=== PATIENT | male | born 1955 | race Caucasian/White ===

== ENCOUNTER → 2021-06-06 | Outpatient (CLI) | payer OTHER, MEDICARE ==
[~2021-06-06] MED LIST: ASA81BEC PO; DULOXETINE HCL60 MG PO; INVANZ1 GM IVPB; LISINOPRIL-HCT1 EACH PO; TOPROL XL50 MG; XARELTO20 MG PO
[2021-06-06 11:45] VITALS: BP 148/93
--- NOTE | 2021-06-06 12:41 | NUR ---
VAT CONSULTED FOR PICC PLACEMENT IN OUTPATIENT INFUSION. LEFT UPPER BASILIC PICC TRIMMED 53CM/1CM EXTERNAL. TIP LOCATION VERIFIED WITH 3CG AND RELEASED FOR USE, PER HOSPITAL VASCULAR ACCESS POLICY. PT TOLERATED WELL.
[2021-06-06 13:25] VITALS: BP 148/93
[2021-06-06 13:35] LABS: HEMATOCRIT 40.4 % (42.0-52.0); HEMOGLOBIN 13.7 gm/dL (14.0-18.0); MCH 32.1 pg (26.0-34.0); MCV 94.4 fL (80.0-100.0); RBC 4.28 mil/uL (4.50-6.00); RDW 13.1 % (10.5-14.5); WBC 7.8 thou/uL (4.0-11.0)
[2021-06-06 13:45] LABS: ALBUMIN 3.6 g/dL (3.4-5.0); CALCIUM 8.4 mg/dL (8.5-10.1); CREATININE 0.9 mg/dL (0.7-1.3); POTASSIUM 3.6 mmol/L (3.5-5.1); TOTAL BILIRUBIN 0.6 mg/dL (0.2-1.0); TOTAL PROTEIN 6.5 g/dL (6.4-8.2)
--- NOTE | 2021-06-06 15:02 | NUR ---
NEW PT OF DR. GALDAMEZ'S CAME TO US FOR PICC LINE PLACEMENT AND FIRST DOSE OF ERTAPENEM FOR OSTEOMYELITIS OF FINGER OF RIGHT HAND. VSS. HISTORY AND MEDICATION LIST UPDATED. PT DENIES ANY PAIN, NAUSEA, DIZZINESS, OR NOTABLE SYMPTOMS. VAT PLACED POWER PICC IN RADHA WITH NO COMPLICATIONS. REVIEWED PICC LINE HOME CARE. PT COMMUNICATES UNDERSTANDING AND DENIES ANY QUESTIONS. LABS DRAWN VIA PICC LINE PER ORDER. RESULTS FAXED TO DR. GALDAMEZ, ALONG WITH PICC CONFIRMATION. PT TOLERATED ERTAPENEM INFUSION WITH NO COMPLICATIONS. GAVE PT TEACHING HANDOUT ON NEW DRUG. NO QUESTIONS. PT SCHEDULED FOR DAILY OUTPATIENT INFUSIONS. EXPLAINED THE PROCESS FOR WEEKEND INFUSIONS AND GAVE INSTRUCTION SHEET. PT WILL GO TO ED FOR HIS -FRI INFUSIONS. VERIFIED WITH BRAND ANALYST. WILL RETURN TO INFUSION CLINIC ON MONDAY 06/11 AT 1000. PT DOES NOT HAVE A F/U APPT WITH DR GALDAMEZ YET. STATES HE WILL CALL TO SET ONE UP. PT LEFT UNIT IN STABLE CONDITION.
== END ==
LOC: OPONC 08:43
PROVIDERS: ATTEND Specialist
DX: M86.8X4 Other osteomyelitis, hand (principal)
CPT/HCPCS: 27000; 95000

== ENCOUNTER → 2021-06-07 | Outpatient (CLI) | payer OTHER, MEDICARE ==
[2021-06-07 08:10] VITALS: BP 137/80
[2021-06-07 08:48] VITALS: BP 119/85
== END ==
LOC: OPONC 12:00
PROVIDERS: ATTEND Specialist
DX: M86.8X4 Other osteomyelitis, hand (principal)
CPT/HCPCS: 95000

== ENCOUNTER → 2021-06-08 | Outpatient (CLI) | payer OTHER, MEDICARE ==
[2021-06-08 08:31] VITALS: BP 127/92
[2021-06-08 09:06] VITALS: BP 126/90
== END ==
LOC: OPONC 12:00
PROVIDERS: ATTEND Specialist
DX: M86.8X4 Other osteomyelitis, hand (principal)
CPT/HCPCS: 95000

== ENCOUNTER → 2021-06-09 | Outpatient (CLI) | payer OTHER, MEDICARE ==
[2021-06-09 08:37] VITALS: BP 135/82
[2021-06-09 09:10] VITALS: BP 146/86
== END ==
LOC: OPONC 12:00
PROVIDERS: ATTEND Specialist
DX: M86.8X4 Other osteomyelitis, hand (principal)
CPT/HCPCS: 95000

== ENCOUNTER → 2021-06-10 | Outpatient (CLI) | payer OTHER, MEDICARE ==
[2021-06-10 08:47] VITALS: BP 136/92
[2021-06-10 09:23] VITALS: BP 128/89
== END ==
LOC: OPONC 12:00
PROVIDERS: ATTEND Specialist
DX: M86.8X4 Other osteomyelitis, hand (principal)
CPT/HCPCS: 95000

== ENCOUNTER → 2021-06-11 | Outpatient (CLI) | payer OTHER, MEDICARE ==
[2021-06-11 10:10] VITALS: BP 128/81
--- NOTE | 2021-06-11 10:45 | NUR ---
HERE FOR HIS DAILY IV ERTAPENEM INFUSION. STATES INFUSIONS WENT WELL IN THE ED OVER THE HOLIDAY WEEKEND. DENIES N/V BUT DOES HAVE SOME DIARRHEA. NOT WATERY, 1-2 LOOSE STOOLS/DAY. LET PT KNOW THAT HE CAN ADD YOGURT AND/OR A PROBIOTIC AND CAN TAKE OTC IMMODIUM PER PACKAGE INSTRUCTIONS. INSTRUCTED PT TO REPORT ANY INCREASE OR PROBLEMS WITH THE DIARRHEA. DENIES FEVER/CHILLS. NO C/O PAIN. RIGHT 1ST 2 FINGERS REMAIN SLIGHTLY SWOLLEN. INCISION APPEARS TO BE HEALING; WELL APPROXIMATED, NO REDNESS OR DRAINAGE. ABLE TO BEND FINGERS WITH SOME LIMITATION. STATES EATING WELL. NO CONCERNS NOTED. PICC DRESSING INTACT WITH BRISK BLOOD RETURN. TOLERATED INFUSION WITHOUT INCIDENT. PLANS TO CALL DR. GALDAMEZ AND DR. MCKEON'S OFFICES TODAY TO SET UP HIS F/U APPTS. SCHEDULED TO RETURN HERE AGAIN TOMORROW. DISMISSED IN STABLE CONDITION.
== END ==
LOC: OPONC 12:20
PROVIDERS: ATTEND Specialist
DX: M86.8X4 Other osteomyelitis, hand (principal)
CPT/HCPCS: 95000

== ENCOUNTER → 2021-06-12 | Outpatient (CLI) | payer OTHER, MEDICARE ==
[2021-06-12 11:20] LABS: HEMATOCRIT 40.8 % (42.0-52.0); HEMOGLOBIN 13.7 gm/dL (14.0-18.0); MCHC 33.7 g/dL (28.0-37.0); MCV 94.9 fL (80.0-100.0); RBC 4.3 mil/uL (4.50-6.00); RDW 13.6 % (10.5-14.5); WBC 7.3 thou/uL (4.0-11.0)
[2021-06-12 11:30] VITALS: BP 135/91
[2021-06-12 11:35] LABS: ALBUMIN 3.6 g/dL (3.4-5.0); CALCIUM 8.6 mg/dL (8.5-10.1); CREATININE 0.9 mg/dL (0.7-1.3); POTASSIUM 3.9 mmol/L (3.5-5.1); TOTAL BILIRUBIN 0.4 mg/dL (0.2-1.0); TOTAL PROTEIN 6.5 g/dL (6.4-8.2)
== END ==
LOC: OPONC 08:44
PROVIDERS: ATTEND Specialist
DX: M86.8X4 Other osteomyelitis, hand (principal)
CPT/HCPCS: 95000

== ENCOUNTER → 2021-06-13 | Outpatient (CLI) | payer OTHER, MEDICARE ==
[2021-06-13 10:10] VITALS: BP 127/93
== END ==
LOC: OPONC 12:17
PROVIDERS: ATTEND Specialist
DX: M86.8X4 Other osteomyelitis, hand (principal)
CPT/HCPCS: 95000

== ENCOUNTER → 2021-06-14 | Outpatient (CLI) | payer OTHER, MEDICARE ==
[2021-06-14 10:45] VITALS: BP 136/93
== END ==
LOC: OPONC 14:09
PROVIDERS: ATTEND Specialist
DX: M86.8X4 Other osteomyelitis, hand (principal)
CPT/HCPCS: 95000

== ENCOUNTER → 2021-06-15 | Outpatient (CLI) | payer OTHER, MEDICARE ==
[2021-06-15 10:45] VITALS: BP 138/84
== END ==
LOC: OPONC 14:17
PROVIDERS: ATTEND Specialist
DX: M86.8X4 Other osteomyelitis, hand (principal)
CPT/HCPCS: 95000

== ENCOUNTER → 2021-06-16 | Outpatient (CLI) | payer OTHER, MEDICARE ==
[~2021-06-16] MED LIST changes: -TOPROL XL50 MG; +TOPROL XL50 MG PO
[2021-06-16 08:45] VITALS: BP 134/83
[2021-06-16 09:34] VITALS: BP 128/85
== END ==
LOC: OPONC 09:21
PROVIDERS: ATTEND Specialist
DX: M86.8X4 Other osteomyelitis, hand (principal)
CPT/HCPCS: 95000

== ENCOUNTER → 2021-06-17 | Outpatient (CLI) | payer OTHER, MEDICARE ==
[2021-06-17 09:32] VITALS: BP 134/87
== END ==
LOC: OPONC 09:26
PROVIDERS: ATTEND Specialist
DX: M86.8X4 Other osteomyelitis, hand (principal)
CPT/HCPCS: 95000

== ENCOUNTER → 2021-06-18 | Outpatient (CLI) | payer OTHER, MEDICARE ==
[2021-06-18 09:45] VITALS: BP 141/94
--- NOTE | 2021-06-18 10:15 | NUR ---
HERE FOR DAILY IV ERTAPENEM INFUSION. REPORTS DOING WELL, FEELING WELL. NO CONCERNS NOTED. SLIGHT REDNESS AT BASE OF BETWEEN 1ST AND 2ND FINGERS. STIFFNESS CONTINUES BUT ABLE TO BEND FINGERS. MINIMAL EDEMA. DENIES N/V/DIARRHEA, FEVER/CHILLS. TOLERATED INFUSION WITHOUT INCIDENT. DISMISSED IN STABLE CONDITION. SCHEDULED TO RETURN AGAIN IN THE MORNING.
== END ==
LOC: OPONC 09:30
PROVIDERS: ATTEND Specialist
DX: M86.8X4 Other osteomyelitis, hand (principal)
CPT/HCPCS: 95000

== ENCOUNTER → 2021-06-19 | Outpatient (CLI) | payer OTHER, MEDICARE ==
[2021-06-19 10:40] VITALS: BP 143/91
--- NOTE | 2021-06-19 10:40 | NUR ---
HERE FOR DAILY IV ERTAPENEM. CONTINUES TO REPORT DOING WELL, TOLERATING MEDICATION WITHOUT INCIDENT. DENIES N/V/DIARRHEA, FEVER/CHILLS. RIGHT HAND WITH MINIMAL REDNESS. FINGER STILL STIFF BUT ABLE TO BEND. PICC SITE LOOKS GOOD. LABS DRAWN TODAY. PT SEEING DR. GALDAMEZ TODAY. DISMISSED POST INFUSION IN STABLE CONDITION. SCHEDULED TO RETURN AGAIN IN THE MORNING.
[2021-06-19 10:54] LABS: ABSOLUTE NEUTROPHILS 4.5 thou/uL (1.4-8.2); BASOPHILS 0.7 % (0.0-2.0); EOSINOPHILS 2.3 % (0.0-3.0); HEMATOCRIT 41.9 % (42.0-52.0); HEMOGLOBIN 13.8 gm/dL (14.0-18.0); LYMPHOCYTES 16.7 % (24.0-44.0); MCH 31.6 pg (26.0-34.0); MCV 95.6 fL (80.0-100.0); MONOCYTES 9.5 % (1.0-8.0); PLATELET COUNT 193 thou/uL (150-400); POLYS 70.8 % (36.0-66.0); RBC 4.38 mil/uL (4.50-6.00); RDW 13.4 % (10.5-14.5); WBC 6.3 thou/uL (4.0-11.0)
[2021-06-19 11:11] LABS: ALBUMIN 3.5 g/dL (3.4-5.0); ANION GAP 9 mmol/L (7-16); BUN 14 mg/dL (7-18); CALCIUM 8.3 mg/dL (8.5-10.1); CHLORIDE 103 mmol/L (98-107); CO2 28 mmol/L (21-32); CREATININE 0.9 mg/dL (0.7-1.3); GLUCOSE 97 mg/dL (74-106); POTASSIUM 3.8 mmol/L (3.5-5.1); SGOT 45 U/L (15-37); SGPT 76 U/L (30-65); SODIUM 140 mmol/L (136-145); TOTAL BILIRUBIN 0.8 mg/dL (0.2-1.0); TOTAL PROTEIN 6.3 g/dL (6.4-8.2)
== END ==
LOC: OPONC 14:43
PROVIDERS: ATTEND Specialist
DX: M86.8X4 Other osteomyelitis, hand (principal)
CPT/HCPCS: 95000

== ENCOUNTER → 2021-06-20 | Outpatient (CLI) | payer OTHER, MEDICARE ==
[2021-06-20 11:21] VITALS: BP 138/93
--- NOTE | 2021-06-20 13:04 | NUR ---
HERE FOR DAILY ANTIBIOTIC THERAPY. PATIENT JUST CAME FROM APPOINTMENT AT SURGEONS OFFICE AND PATIENT TO HAVE SURGERY AGIAN TOMORROW ON FINGER. STATES WILL NOT BE HERE FOR APPOINTMENT TOMORROW. DENIES DIARHHEA, HEADACHE, NAUSEA. TOLERATED INFUSION WITHOUT ADVERSE REACTION. DC TO HOME IN STABLE CONDITION.
== END ==
LOC: OPONC 09:02
PROVIDERS: ATTEND Specialist
DX: M86.8X4 Other osteomyelitis, hand (principal)
CPT/HCPCS: 95000

== ENCOUNTER 2021-06-21 09:00 | Day surgery (SDC) | payer OTHER, MEDICARE ==
[~2021-06-21] VITALS: Ht 182.9 cm; Wt 106.1 kg
--- NOTE | ~2021-06-21 | O ---
[facility] [place] [address] OPERATIVE REPORT Name: HAYDEN RUIZ Room #: 150-8 [facility]#: [id number] Admission: 06/21/21 Attend Phys: Hali Gao, Discharge: Date of : 55 Report #: [id number] THIS REPORT FOR: cc: Landry Reynoso MD, David A. MD Deardorff, Valerie A. MD ~ DATE OF SERVICE: 06/21/2021 PREOPERATIVE DIAGNOSIS: Right ring finger osteomyelitis/recurrent. POSTOPERATIVE DIAGNOSIS: Right ring finger osteomyelitis/recurrent. PROCEDURE PERFORMED: Right ring finger incision and debridement of skin, subcutaneous tissue and bone. SURGEON: Hali Gao MD TYPE OF ANESTHESIA: General mask anesthesia. ESTIMATED BLOOD LOSS: Minimal. TOURNIQUET TIME: 14 minutes. COMPLICATIONS: None. CONDITION: Stable. DISPOSITION: To recovery room. INDICATIONS: The patient is a 66-year-old male with the above-mentioned diagnoses. He elects for operative treatment. The risks, benefits, alternatives, complications were discussed, including but not limited to infection, damage to vessels and nerves, incomplete relief or worsening of any symptoms, and inability to resolve the infection necessitating more surgery. Informed consent was obtained, and the correct extremity was identified and labeled by myself after verbal confirmation of the patient as well as visual confirmation and signed informed consent. DESCRIPTION OF PROCEDURE: The patient was brought back to the operating room and placed on the operating table in the supine position. He received his typical dose of ertapenem after the cultures were taken at the end of the procedure. The right extremity was sterilely prepped and draped in the usual fashion. A timeout was taken to verify correct patient, operative procedure, operative site, all concurred. The arm was elevated, exsanguinated proximal to the wrist and the tourniquet was inflated. The prior surgical incision was utilized. Typical material consistent with mycobacterial infections consisting [address] [address] OPERATIVE REPORT Name: HAYDEN RUIZ Room #: 150-8 [facility].#: [id number] Admission: 06/21/21 Attend Phys: Hali Gao, Discharge: Date of : 55 Report #: [id number] of the yellowish brownish tissue was found immediately at the incision site. It was tracked all the way down to the MP joint and the base of P1. It was thoroughly debrided with this combination of a synovial rongeur, regular rongeur and curette. Once this was thoroughly and completely debrided, fluoroscopy was brought in, which showed appropriate debridement with a curette. The area was then thoroughly irrigated with a liter of antibiotic saline. The wound was then closed with 4-0 nylon suture. The wound was dressed with Xeroform and sterile gauze, placed in a bulky dressing. All fingers were pink with brisk capillary refill. All sponge and needle counts were correct. The patient was transferred to postoperative recovery room in stable condition. By: [id number] Hali Gao MD /nt
[2021-06-21 10:42] VITALS: BP 130/96
[2021-06-21 12:41] VITALS: BP 130/96
== END 2021-06-21 13:05 | disposition home or self-care (01) ==
LOC: OR 09:00 → TBA 09:02 → OR 12:10
PROVIDERS: ATTEND Orthopaedic Surgery Hand Surgery
DX: M86.8X4 Other osteomyelitis, hand (principal); L02.511 Cutaneous abscess of right hand; I10 Essential (primary) hypertension; E78.5 Hyperlipidemia, unspecified; Z20.822 Contact with and (suspected) exposure to COVID-19; I48.91 Unspecified atrial fibrillation; F32.9 Major depressive disorder, single episode, unspecified; F41.9 Anxiety disorder, unspecified; Z98.890 Other specified postprocedural states; Z79.899 Other long term (current) drug therapy; Z79.01 Long term (current) use of anticoagulants
CPT/HCPCS: 50010; 50101; 50386; 56526; 57006; 57091; 57178; 62110; 62900; 70005

== ENCOUNTER → 2021-06-22 | Outpatient (CLI) | payer OTHER, MEDICARE ==
[2021-06-22 10:10] VITALS: BP 134/65
--- NOTE | 2021-06-22 10:44 | NUR ---
ARRIVED FOR DAILY ERTAPENEM. YESTERDAY PATIENT WAS IN SURGERY FOR LEFT FINGER OSTEOMYLITIS. DENIES PAIN. PT HEARING HAND BRACE. DENIES DIARRHEA, NAUSEA OR HEADACHE. TOLERATED INFUSION WITHOUT ADVERSE REACTION. DC TO HOME IN STABLE CONDITION FOLLOWING INFUSION. WILL RETURN TOMORROW FOR NEXT INFUSION.
== END ==
LOC: OPONC 09:02
PROVIDERS: ATTEND Specialist
DX: M86.8X4 Other osteomyelitis, hand (principal)
CPT/HCPCS: 95000

== ENCOUNTER → 2021-06-23 | Outpatient (CLI) | payer OTHER, MEDICARE ==
[2021-06-23 07:40] VITALS: BP 121/81
--- NOTE | 2021-06-23 08:58 | NUR ---
HERE FOR DAILY ERTAPENEM. STATES HE IS FEELING WELL. PATIENT DOING DRSSING CHANGES ON FINGER AT HOME. WEARING BRACE ON RIGHT HAND. TOLERATED INFUSION WITHOUT ADVERSE REACTION. DENIES N/V PAIN, SANTIAGO, OR DIARRHEA. DC AMBULATORY IN STABLE CONDITION. WILL RETURN IN AM FOR NEXT TREATMENT.
== END ==
LOC: OPONC 09:57
PROVIDERS: ATTEND Specialist
DX: M86.8X4 Other osteomyelitis, hand (principal)
CPT/HCPCS: 95000

== ENCOUNTER → 2021-06-24 | Outpatient (CLI) | payer OTHER, MEDICARE ==
[2021-06-24 07:43] VITALS: BP 118/75
--- NOTE | 2021-06-24 08:47 | NUR ---
ARRIVED FOR DAILY ERTAPENAM. RIGHT FINGER STITCHES INTACT. PATIENT CLEANING WOUND DAILY AND CHANGING DRESSING AT HOME. WEARS RIGHT HAND BRACE. TOLERATED INFUSION WITHOUT ADVERSE REACTION. VOICED NO COMPLAINTS. DC IN STABLE CONDITION.
== END ==
LOC: OPONC 10:01
PROVIDERS: ATTEND Specialist
DX: M86.8X4 Other osteomyelitis, hand (principal)
CPT/HCPCS: 95000

== ENCOUNTER → 2021-06-25 | Outpatient (CLI) | payer OTHER, MEDICARE ==
[2021-06-25 10:15] VITALS: BP 127/96
--- NOTE | 2021-06-25 10:45 | NUR ---
HERE FOR DAILY IV ERTAPENEM INFUSION. REPORTS DOING WELL. DENIES PAIN, N/V/DIARRHEA, FEVER/CHILLS. WASHING RT HAND AND PLACING DRY GAUZE OVER INCISION. SITE LOOKS A LITTLE REDDENED, ONLY SLIGHT EDEMA NOTED. SUTURES INTACT. PT STATES HE WILL SEE DR. MCKEON ON AND DR. GALDAMEZ ON FRI OF THIS WEEK. HE SEES HIS ARMATURE REWINDER, DR. LEON ON FRIDAY. TOLERATED INFUSION WITHOUT INCIDENT. DISMISSED IN STABLE CONDITION. SCHEDULED TO RETURN AGAIN IN THE MORNING.
== END ==
LOC: OPONC 10:04
PROVIDERS: ATTEND Specialist
DX: M86.8X4 Other osteomyelitis, hand (principal)
CPT/HCPCS: 95000

== ENCOUNTER → 2021-06-26 | Outpatient (CLI) | payer OTHER, MEDICARE ==
[2021-06-26 10:15] VITALS: BP 134/93
[2021-06-26 10:36] LABS: ABSOLUTE NEUTROPHILS 4.8 thou/uL (1.4-8.2); BASOPHILS 0.7 % (0.0-2.0); EOSINOPHILS 2.5 % (0.0-3.0); HEMATOCRIT 43.4 % (42.0-52.0); HEMOGLOBIN 14.6 gm/dL (14.0-18.0); LYMPHOCYTES 17.5 % (24.0-44.0); MCH 31.6 pg (26.0-34.0); MCHC 33.7 g/dL (28.0-37.0); MCV 93.9 fL (80.0-100.0); MONOCYTES 8.1 % (1.0-8.0); PLATELET COUNT 207 thou/uL (150-400); POLYS 71.2 % (36.0-66.0); RBC 4.62 mil/uL (4.50-6.00); WBC 6.8 thou/uL (4.0-11.0)
[2021-06-26 10:40] LABS: ALBUMIN 3.5 g/dL (3.4-5.0); ANION GAP 6 mmol/L (7-16); BUN 17 mg/dL (7-18); CALCIUM 8.3 mg/dL (8.5-10.1); CHLORIDE 103 mmol/L (98-107); CO2 29 mmol/L (21-32); CREATININE 0.9 mg/dL (0.7-1.3); GLUCOSE 103 mg/dL (74-106); POTASSIUM 4.1 mmol/L (3.5-5.1); SGOT 22 U/L (15-37); SGPT 46 U/L (30-65); SODIUM 138 mmol/L (136-145); TOTAL BILIRUBIN 0.6 mg/dL (0.2-1.0); TOTAL PROTEIN 6.4 g/dL (6.4-8.2)
--- NOTE | 2021-06-26 11:21 | NUR ---
PT HERE FOR DAILY ERTAPENEM. DENIES PAIN, NAUSEA, VOMITING, OR OTHER SYMPTOMS. STATES HE DOES NOT HAVE ANY PAIN IN HIS HAND, BUT IT REMAINS SWOLLEN. INCISION C/D/I WITH NO S/S OF INFECTION. WEEKLY LABS DRAWN PER ORDER. WILL FAX RESULTS TO DR GALDAMEZ. PT TOLERATED INFUSION WITH NO COMPLICATIONS. PICC LINE DRESSING CHANGED PER PROTOCOL. PT SCHEDULED TO RETURN TOMORROW. LEFT UNIT IN STABLE CONDITION.
== END ==
LOC: OPONC 15:16
PROVIDERS: ATTEND Specialist
DX: M86.8X4 Other osteomyelitis, hand (principal)
CPT/HCPCS: 95000

== ENCOUNTER → 2021-06-27 | Outpatient (CLI) | payer OTHER, MEDICARE ==
[2021-06-27 10:08] VITALS: BP 122/96
[2021-06-27 10:25] VITALS: BP 137/83
--- NOTE | 2021-06-27 15:52 | NUR ---
HERE FOR DAILY IV ERTAPENEM INFUSION. REPORTS DOING WELL. DENIES N/V/DIARRHEA, FEVER/CHILLS. INCISION BASE OF RIGHT RING FINGER LOOKS CLEAN, SUTURES IN PLACE WITH SLIGHT INTENTIONAL GAP. MINIMAL SEROSANGUINOUS DRAINAGE ON DRESSING. PT IS WASHING HAND WITH SOAP/WATER AND APPLYING DRY GAUZE AT LEAST DAILY. WEARING SPLINT TO PROTECT AREA. MINIMAL PINK COLOR AND EDEMA NOTED. PT SEEING DR. GALDAMEZ TODAY AND DR. MCKEON TOMORROW. HE SEES HIS OPERATIONS VICE PRESIDENT ON FRIDAY. COPY OF PT'S VITAL SIGNS GIVEN TO HIM TO SHARE WITH DR. LEON NOTING BP HAS BEEN RUNNING A BIT HIGH. PT STATES HE DID RUN OUT OF METOPROLOL BUT ONLY MISSED THIS MORNING AND HAS ALREADY HAD OFFICE ORDER A REFILL. DISMISSED IN STABLE CONDITION. SCHEDULED TO RETURN AGAIN TOMORROW MORNING.
== END ==
LOC: OPONC 12:50
PROVIDERS: ATTEND Specialist
DX: M86.8X4 Other osteomyelitis, hand (principal)
CPT/HCPCS: 95000

== ENCOUNTER → 2021-06-28 | Outpatient (CLI) | payer OTHER, MEDICARE ==
[2021-06-28 10:45] VITALS: BP 123/87
--- NOTE | 2021-06-28 10:45 | NUR ---
HERE FOR DAILY IV ERTAPENEM. JUST SAW DR. MCKEON IN HER OFFICE WHO REMOVED HIS STITCHES. SAW DR. GALDAMEZ YESTERDAY. PLAN IS TO F/U ON CULTURE REPORT TOMORROW WITH DR. GALDAMEZ TO SEE IF HE CAN SWITCH TO ORAL THERAPY. PT REPORTS DOING WELL. DENIES N/V/DIARRHEA, FEVER/CHILLS, ANY CONCERNS. TOLERATED INFUSION TODAY WITHOUT INCIDENT. DISMISSED IN STABLE CONDITION. WILL RETURN AGAIN IN THE MORNING.
== END ==
LOC: OPONC 12:00
PROVIDERS: ATTEND Specialist
DX: M86.8X4 Other osteomyelitis, hand (principal)
CPT/HCPCS: 95000

== ENCOUNTER → 2021-06-29 | Outpatient (CLI) | payer OTHER, MEDICARE ==
[~2021-06-29] MED LIST changes: +AMIODARONE HCL400 MG PO; +DULOXETINE HCL30 MG PO; +LINEZOLID600 MG PO; +TOBRAMYCIN IV
[2021-06-29 14:57] VITALS: BP 131/85
--- NOTE | 2021-06-29 15:35 | NUR ---
ORDERS RECEIVED FROM DR. GALDAMEZ. LAST DAY OF ERTAPENAM. AWAITING SENSITIVITIES FROM SURGERY CULTURES. NO ANTIBIOTICS OVER THE WEEKEND PER DR. GALDAMEZ BUT CONTINUE PICC LINE CARE. PATIENT INSTRUCTED AND WILL BE TEACHING HOW TO FLUSH PICC LINE AT HOME. PATIENT VERBALIZED UNDERSTANDING OF ALL TEACHING DONE. PATIENT TO RETURN ON FRIDAY FOR PICC LINE DRESSING CHANGE. FRIDAY PATIENT TO HAVE CARDIOVERSION AT 07 FOR AFIB. ONCE CULTURES RESULTED NEW ANTIBIOTIC WILL BE ORDERED AND PATIENT WILL RESUME DAILY THERAPY. DC IN STABEL CONDITION TO HOME.
== END ==
LOC: OPONC 15:09
PROVIDERS: ATTEND Specialist
DX: M86.8X4 Other osteomyelitis, hand (principal)
CPT/HCPCS: 95000

== ENCOUNTER → 2021-07-02 | Outpatient (CLI) | payer OTHER, MEDICARE ==
[2021-07-02 10:15] VITALS: BP 138/89
--- NOTE | 2021-07-02 11:18 | NUR ---
PT HERE FOR PICC LINE DRESSING CHANGE. CALLED DR GALDAMEZ'S NURSE THIS MORNING TO SEE IF SENSITIVITIES WERE RESULTED YET. STATES SHE HAS NOT RECEIVED THEM AND WILL F/U REGARDING PLAN OF CARE AND NEXT STEPS ONCE SHE HAS RESULTS. PT DENIES PAIN IN HIS HAND, BUT REPORTS STIFFNESS AND MODERATE SWELLING. INCISION HEALING WELL WITH NO S/S OF INFECTION. PICC LINE REMAINS PATENT WITH BRISK BLOOD RETURN. DRESSING CHANGED PER PROTOCOL. WILL F/U WITH PT REGARDING FURTHER APPOINTMENTS AFTER HEARING FROM DR GALDAMEZ. PT LEFT UNIT IN STABLE CONDITION.
== END ==
LOC: OPONC 10:39
PROVIDERS: ATTEND Specialist
DX: M86.8X4 Other osteomyelitis, hand (principal)
CPT/HCPCS: 91018

== ENCOUNTER → 2021-07-05 | Outpatient (CLI) | payer OTHER, MEDICARE ==
[~2021-07-05] MED LIST changes: +BIAXIN 500 MG500 M2 PO
[2021-07-05 15:34] VITALS: BP 122/69
--- NOTE | 2021-07-05 15:43 | NUR ---
HERE FOR START OF NEW ANTIBIOTIC TOBRAMYCIN. REVIEWED SIDE EFFECTS WITH PATIENT AND HANDOUT GIVEN. VERBALIZED UNDERSTANDING OF ALL TEACHING DONE. PATIENT WEARING BRACE ON RIGHT HAND. SURGERY SITE HEALED AND LOOKS GOOD. NO SWELLING OR DISCHARGE. PATIENT HAS FINGER EXERCISES HE IS TO BE DOING. ENCOURAGED PATIENT TO DO THOSE 2-[address] X DAILY. SPOKE WITH DR. GALDAMEZ REGARDING PATIENTS NEW ORDER FOR AMIODARONE FROM AUDIOVISUAL LEAD TECHNICIAN DR. LEON. PT INSTRUCTED TO HOLD ALL NEW PO MEDS FROM DR. GALDAMEZ UNTIL FURTHER NOTICE DUE TO THEIR INTEREACTIONS WITH AMIODARONE. PATIENT TO RETURN IN AM FOR NEXT INFUSION
== END ==
LOC: OPONC 10:49 → EDSTATUS 11:37 → OPONC 14:39
PROVIDERS: ATTEND Specialist
DX: M86.8X4 Other osteomyelitis, hand (principal)
CPT/HCPCS: 95000

== ENCOUNTER → 2021-07-06 | Outpatient (CLI) | payer OTHER, MEDICARE ==
[2021-07-06 09:54] VITALS: BP 125/80
--- NOTE | 2021-07-06 09:58 | NUR ---
ARRIVED FOR DAILY TOBRAMYCIN. VOICES NO COMPLAINTS. PATIENT SPOKE TO DR. GALDAMEZ'S OFFICE YESTERDAY AND PATIENT IS TO START CLARTHRIMYCIN. PATIENT WILL HAVE EKG TOMORROW HERE IN CLINIC TO MONITOR QT INTERVAL. TODAY HRR. TOLERATED INFUSION WITHOUT ADVERSE REACTION. DC AMBULATORY IN STABLE CONDITION.
== END ==
LOC: OPONC 11:38
PROVIDERS: ATTEND Specialist
DX: M86.8X4 Other osteomyelitis, hand (principal)
CPT/HCPCS: 95000

== ENCOUNTER → 2021-07-07 | Outpatient (CLI) | payer OTHER, MEDICARE ==
[2021-07-07 09:38] VITALS: BP 134/72
--- NOTE | 2021-07-07 09:43 | NUR ---
HERE FOR DAILY IV TOBRAMYCIN INFUSION. REPORTS DOING WELL. DENIES N/V/DIARRHEA, FEVER/CHILLS, PAIN. NO DIZZY SPELLS OR NOTED ISSUES WITH HEART. EKG DONE PER ORDER, ED PHYSICIAN READ REPORT AND DR. GALDAMEZ NOTIFIED OF THE RESULTS WITH ORDER TO CONTINUE SAME THERAPY. PT NOTIFIED AND VERBALIZES UNDERSTANDING. ASKED PT TO CONTINUE TO WATCH FOR AND NOTE ANY DIZZINESS OR OTHER CONCERNS AND REPORT THOSE TO US. TOLERATED TODAY'S INFUSION WITOUT INCIDENT. DISMISSED IN STABLE CONDITION. WILL RETURN IN THE MORNING.
--- NOTE | 2021-07-09 07:17 | EKG ---
[address] [address] ELECTROCARDIOGRAM REPORT Name: HAYDEN RUIZ Room #: [facility]#: [id number] Admission: Attend Phys: Lebron Whitt MD Discharge: Date of : 55 Report #: [id number] [facility] Test Date: 2021-07-07 Test Time: 08:41:40 Pat Name: HAYDEN RUIZ Department: Room: Gender: Garment Supervisor: ANGIE : 1955 Requested By: Lebron Whitt Order Number: [id number] MD: Leo Shannon Measurements Intervals [place] Rate: 75 P: 11 [place]: 160 QRS: 11 QRSD: 79 T: 6 QT: 426 QTc: 476 Interpretive Statements Sinus rhythm Borderline T wave abnormalities Borderline prolonged QT interval No previous ECG available for comparison Electronically Signed On 07-09-2021 7:17:11 BRASS MOLDER HELPER by Leo Shannon [email or web address] <ELECTRONICALLY SIGNED> By: Leo Shannon MD, [facility] 07/09/21 0717 [id number] Leo Shannon MD, FACMechelle /EPI
== END ==
LOC: OPONC 11:44
PROVIDERS: ATTEND Specialist
DX: M86.8X4 Other osteomyelitis, hand (principal); I48.91 Unspecified atrial fibrillation
CPT/HCPCS: 95000

== ENCOUNTER → 2021-07-08 | Outpatient (CLI) | payer OTHER, MEDICARE ==
[2021-07-08 08:45] VITALS: BP 126/72
--- NOTE | 2021-07-08 09:24 | NUR ---
ARRIVED AMBULATORY FOR DAILY TOBRAMYCIN INFUSION. DENIES ANY DIZZINESS OR LIGHTHEADEDNESS. DENIES RINGING IN THE EARS OR ANY TROUBLE URINATING. PICC LINE INACT AND FLUSHES EASILY WITH GOOD BLODD RETURN. PATIENT TOLERATED INFUSION WITHOUT ADVERSE REACTION. DC AMBULATORY IN STABLE CONDITION.
== END ==
LOC: OPONC 11:46
PROVIDERS: ATTEND Specialist
DX: M86.8X4 Other osteomyelitis, hand (principal)
CPT/HCPCS: 95000

== ENCOUNTER → 2021-07-09 | Outpatient (CLI) | payer OTHER, MEDICARE ==
[2021-07-09 10:00] VITALS: BP 126/81
[2021-07-09 10:41] LABS: ABSOLUTE NEUTROPHILS 5.4 thou/uL (1.4-8.2); BASOPHILS 2.4 % (0.0-2.0); EOSINOPHILS 1.7 % (0.0-3.0); HEMATOCRIT 43.9 % (42.0-52.0); HEMOGLOBIN 14.8 gm/dL (14.0-18.0); LYMPHOCYTES 14.8 % (24.0-44.0); MCH 31.9 pg (26.0-34.0); MCHC 33.7 g/dL (28.0-37.0); MCV 94.5 fL (80.0-100.0); MONOCYTES 9.3 % (1.0-8.0); PLATELET COUNT 179 thou/uL (150-400); POLYS 71.8 % (36.0-66.0); RBC 4.65 mil/uL (4.50-6.00); WBC 7.6 thou/uL (4.0-11.0)
[2021-07-09 10:56] LABS: ALBUMIN 3.7 g/dL (3.4-5.0); CALCIUM 8.7 mg/dL (8.5-10.1); POTASSIUM 3.7 mmol/L (3.5-5.1); TOTAL BILIRUBIN 0.6 mg/dL (0.2-1.0); TOTAL PROTEIN 6.7 g/dL (6.4-8.2)
--- NOTE | 2021-07-09 13:30 | NUR ---
HERE FOR DAILY IV TOBRAMYCIN INFUSION. REPORTS DOING WELL BUT HAS NOTICED SOME DIARRHEA. STATES NOT BAD. ENCOURAGED PT TO MONITOR AND REPORT WORSENING AND TO TAKE IMMODIUM PER PACKAGE DIRECTIONS NEEDED. DENIES N/V, PAIN, FEVER/CHILLS, ANY CARDIAC SYMPTOMS. DOES NOTE INCREASE IN EDEMA AND STIFFNESS IN RIGHT HAND WHICH THIS NURSE CAN SEE WELL. PT WILL SEE DR. GALDAMEZ IN THE OFFICE ON FRI FOR EVALUATION. PT ALSO SEES DR. LEON THIS WEEK, HIS CARDIOGIST. PT GIVEN A COPY OF HIS EKG TO SHOW TO DR. LEON. SPOKE WITH DR. GALDAMEZ THIS AFTERNOON ABOUT PT NOTING THE DIARRHEA (HE ASKED FOR PT TO TAKE THE IMMODIUM) AND INCREASE IN HAND SWELLING. DR. GALDAMEZ WOULD LIKE A REPEAT EKG THIS WEEK; NOTIFIED THAT PT IS SEEING HIS MOBILE ENGINEER SO DR. GALDAMEZ WILL LET HIM DO THE EKG IN HIS OFFICE. LABS DRAWN TODAY PRIOR TO INFUSION, PICC DRESSING CHANGE DONE. TOLERATED INFUSION WITHOUT INCIDENT. DISMISSED IN STABLE CONDITION. WILL RETURN AGAIN IN THE MORNING.
== END ==
LOC: OPONC 11:48
PROVIDERS: ATTEND Specialist
DX: M86.8X4 Other osteomyelitis, hand (principal)
CPT/HCPCS: 95000

== ENCOUNTER → 2021-07-10 | Outpatient (CLI) | payer OTHER, MEDICARE ==
[2021-07-10 13:50] VITALS: BP 128/87
--- NOTE | 2021-07-10 13:55 | NUR ---
HERE FOR DAILY TOBRAMYCIN INFUSION. DENIES ANY CARDIAC SIDE EFFECTS. STATES HAD TWO "LOOSE" STOOLS SINCE YESTERDAY. INSTRUCTED PATIENT TO BUY OTC IMODIUM PER DR. GALDAMEZ AND TAKE ACCORDING TO PACKAGE DIRECTIONS. PATIENT HAS HAD TWO LOOSE STOOLS IN THE LAST 24 HOURS. PATIENT TO SEE PA AT [facility] OFFICE TODAY. INSTRUCTED PATIENT TO HAVE THEM DO AN EKG AND FAX RESULTS TO INFUSION CLINIC PER DR. GALDAMEZ. HAND REMAINS SLIGHTLY SWOLLEN. PATIENT DOESN'T THINK IT IS ANY WORSE THAN YESTERDAY. STATES HAND IS "UNCOMFORTABLE." PATIENT CONTINUES TO DO EXCERCISES THAT HE WAS SHOWN BY THERAPY. HE DOES THESE SEVERAL TIMES A DAY SO THAT HIS HAND DOESN'T GET TOO STIFF. TOLERATED INFUSION WITHOU ADVERSE REACTION. WILL RETURN IN AM FOR NEXT TOBRAMYCIN INFUSION.
== END ==
LOC: OPONC 11:50
PROVIDERS: ATTEND Specialist
DX: M86.8X4 Other osteomyelitis, hand (principal)
CPT/HCPCS: 95000

== ENCOUNTER → 2021-07-11 | Outpatient (CLI) | payer OTHER, MEDICARE ==
[2021-07-11 10:08] VITALS: BP 114/93
--- NOTE | 2021-07-11 10:10 | NUR ---
HERE FOR DAILY TOBRAMYCIN. STATES DID NOT HAVE ANY LOOSE STOOLS AT ALL SINCE YESTERDAY. PATIENT DID NO TAKE AN IMODIUM YET. WAITING TO SEE HOW HE DOES. STATES HE HAS HAD ONE SEMI LOOSE STOOL IN THE LAST 24 HOURS. RIGHT HAND HAS SLIGHTLY INCREASED SWELLING SINCE YESTERDAY. DENIES PAIN BUT STATES IT IS UNCOMFORTABLE TO MAKE A FULL FIST. CONTINUES TO DO HAND EXERCISES GIVEN TO HIM BY PT. SEES DOCTOR RUDOLPH THIS AFTERNOON. STOPPED AMIODORONE PER DR. LEON. TOLERATED INFUSION WITHOUT ADVERSE REACTION. WILL RETURN IN AM FOR NEXT TREATMENT.
== END ==
LOC: OPONC 09:26
PROVIDERS: ATTEND Specialist
DX: M86.8X4 Other osteomyelitis, hand (principal)
CPT/HCPCS: 95000

== ENCOUNTER → 2021-07-12 | Outpatient (CLI) | payer OTHER, MEDICARE ==
[2021-07-12 10:50] LABS: CALCIUM 8.4 mg/dL (8.5-10.1); CREATININE 1.1 mg/dL (0.7-1.3); POTASSIUM 3.8 mmol/L (3.5-5.1)
[2021-07-12 11:15] VITALS: BP 114/69
--- NOTE | 2021-07-12 11:15 | NUR ---
HERE FOR DAILY TOBRAMYCIN INFUSION. REPORTS TOLERATING WELL WITH NO NOTED ADVERSE SIDE EFFECTS. SAW DR. GALDAMEZ YESTERDAY AND STATES PLAN IS TO CONTINUE ON THIS THERAPY FOR A FEW MORE WEEKS INCLUDING HIS ORAL ANTIBIOTICS. SAW DR. LEON A COUPLE DAYS AGO AND DECISION WAS MADE TO STOP THE AMIODARONE. HAD EKG DONE AT THAT VISIT WHICH WAS SHARED WITH DR. GALDAMEZ. RIGHT HAND CONTINUES TO HAVE SOME SWELLING AND STIFFNESS, NO PAIN. DENIES N/V/DIARRHEA, NO NEED FOR THE IMODIUM--PT STATES DIARRHEA FROM A FEW DAYS AGO WAS LIKELY R/T SOMETHING HE ATE. NO FEVER/CHILLS. TOLERATED TODAY'S INFUSION WITHOUT INCIDENT. DISMISSED IN STABLE CONDITION. WILL RETURN AGAIN IN THE MORNING.
== END ==
LOC: OPONC 09:30
PROVIDERS: ATTEND Specialist
DX: M86.8X4 Other osteomyelitis, hand (principal)
CPT/HCPCS: 95000

== ENCOUNTER → 2021-07-13 | Outpatient (CLI) | payer OTHER, MEDICARE ==
[2021-07-13 08:05] VITALS: BP 140/78
--- NOTE | 2021-07-13 08:50 | NUR ---
HERE FOR DAILY TOBRAMYCIN. VOICES NO CONCERNS. DENIES N&V SANTIAGO DIARRHEA OR CHILLS. NO CHANGES IN SWELLING OF RIGHT HAND. STATES DR. GALDAMEZ WILL CONTINUE TO WATCH HAND.TOLERATED INFUSION WITHOUT ADVERSE REACTION. DC AMBULATORY IN STABLE CONDITION.
== END ==
LOC: OPONC 09:33
PROVIDERS: ATTEND Specialist
DX: A31.8 Other mycobacterial infections (principal)
CPT/HCPCS: 95000

== ENCOUNTER → 2021-07-14 | Outpatient (CLI) | payer OTHER, MEDICARE ==
[2021-07-14 08:11] VITALS: BP 147/86
--- NOTE | 2021-07-14 08:32 | NUR ---
ARRIVED FOR DAILY TOBRAMYCIN. VOICES NO COMPLAINTS. RIGHT HAND REMAINS WITH SLIGHT SWELLING AND STIFFNESS. CONTINUES TO DO DAILY EXERCISES WITH RIGHT HAND. DENIES SANTIAGO, CHILLS, N&V OR DIARRHEA. TOLERATED INFUSION WITHOUT ADVERSE REACTION. DC AMBULATORY TO HOME. WILL RETURN TOMORROW FOR NEXT INFUSION.
== END ==
LOC: OPONC 09:40
PROVIDERS: ATTEND Specialist
DX: A31.8 Other mycobacterial infections (principal)
CPT/HCPCS: 95000

== ENCOUNTER → 2021-07-15 | Outpatient (CLI) | payer OTHER, MEDICARE ==
[2021-07-15 08:18] VITALS: BP 143/92
--- NOTE | 2021-07-15 08:21 | NUR ---
HERE FOR DAILY TOBRAMYCIN. VOICES NO CHANGES IN S&S OF ADVERSE REACTIONS OR CHANGES IN HAND. TOLERATED INFUSIN WITHOUT ADVERSE REACTION. DC AMBULATORY IN STABLE CONDITION. TO RETRUN IN AM FOR NEXT TREATMENT.
== END ==
LOC: OPONC 09:43
PROVIDERS: ATTEND Specialist
DX: A31.8 Other mycobacterial infections (principal)
CPT/HCPCS: 95000

== ENCOUNTER → 2021-07-16 | Outpatient (CLI) | payer OTHER, MEDICARE ==
[2021-07-16 10:00] VITALS: BP 155/86
[2021-07-16 10:29] LABS: ABSOLUTE NEUTROPHILS 5.8 thou/uL (1.4-8.2); BASOPHILS 0.7 % (0.0-2.0); EOSINOPHILS 1.8 % (0.0-3.0); HEMOGLOBIN 15.5 gm/dL (14.0-18.0); LYMPHOCYTES 13.2 % (24.0-44.0); MCH 32.2 pg (26.0-34.0); MCHC 34.4 g/dL (28.0-37.0); MCV 93.4 fL (80.0-100.0); MONOCYTES 9.6 % (1.0-8.0); PLATELET COUNT 200 thou/uL (150-400); POLYS 74.7 % (36.0-66.0); RBC 4.82 mil/uL (4.50-6.00); RDW 13.2 % (10.5-14.5); WBC 7.8 thou/uL (4.0-11.0)
[2021-07-16 10:37] LABS: ALBUMIN 3.9 g/dL (3.4-5.0); CALCIUM 8.9 mg/dL (8.5-10.1); POTASSIUM 3.9 mmol/L (3.5-5.1); TOTAL BILIRUBIN 0.9 mg/dL (0.2-1.0)
--- NOTE | 2021-07-16 11:47 | NUR ---
PT HERE FOR DAILY TOBRAMYCIN INFUSION. DENIES ANY PAIN. REPORTS MILD IMPROVEMENT IN SWELLING OF RIGHT HAND, BUT STILL HAS LIMITED ROM. PICC LINE FLUSHES AND ASPIRATES WELL. CBC WITH DIFF, CMP, AND TOBRAMYCIN TROUGH DRAWN PER ORDER. WILL FAX TO DR GALDAMEZ WHEN RESULTED. PT TOLERATED INFUSION WITH NO INCIDENCE. PICC DRESSING CHANGED PER PROTOCOL. PT SCHEDULED TO RETURN TOMORROW. LEFT UNIT IN STABLE CONDITION.
== END ==
LOC: OPONC 10:01
PROVIDERS: ATTEND Specialist
DX: A31.8 Other mycobacterial infections (principal)
CPT/HCPCS: 95000

== ENCOUNTER → 2021-07-17 | Outpatient (CLI) | payer OTHER, MEDICARE ==
[2021-07-17 11:00] VITALS: BP 148/81
--- NOTE | 2021-07-17 14:31 | NUR ---
PT SCHEDULED FOR DAILY TOBRAMYCIN INFUSION. CALLED BEFORE APPOINTMENT TO NOTIFY US THAT HIS AND DAUGHTER TESTED POSITIVE FOR COVID. REPORTED WAKING UP WITH A SLIGHT COUGH. PER CIARAN ANDREWS, OKAY TO CONTINUE TREATING PATIENT, EVEN IF HE TESTS POSITIVE. PT IS TO WEAR AN N95 WHILE IN HOSPITAL AND ANYONE CARING FOR PT IS TO WEAR FULL PPE. DR GALDAMEZ ADVISED PT TO GO TO ER TO GET TESTED, BUT DUE TO COST AND WAIT TIME, PT IS GOING TO SEEK OTHER TESTING OPTIONS. AFTER CLEARED TO BE TREATED, PT ARRIVED TO UNIT IN STABLE CONDITION. NO SIGNS OF COVID EVIDENT THROUGHOUT TREATMENT. VSS AND NO C/O PAIN. PT TOLERATED INFUSION WITH NO COMPLICATIONS. PICC LINE REMAINS CLEAN AND INTACT, FLUSHES AND ASPIRATES WELL. PT LEFT UNIT IN STABLE CONDITION. SCHEDULED TO RETURN TOMORROW.
== END ==
LOC: OPONC 13:29
PROVIDERS: ATTEND Specialist
DX: A31.8 Other mycobacterial infections (principal)
CPT/HCPCS: 95000

== ENCOUNTER → 2021-07-18 | Outpatient (CLI) | payer OTHER, MEDICARE ==
[2021-07-18 10:05] VITALS: BP 150/84
--- NOTE | 2021-07-18 11:05 | NUR ---
IN FOR DAILY IV TOBRAMYCIN INFUSION. REPORTS TOLERATING MEDICATION WELL WITH NO NOTED SIDE EFFECTS. LABS WERE DRAWN FRIDAY. BUN UP SLIGHTLY. ENCOURAGED PT TO STAY HYDRATED. PT SEES DR. GALDAMEZ THIS WEEK IN FOLLOW-UP. PT IS HAVING BACK PAIN--STATES THIS IS SOMETHING THAT FLARES ON OCCASION. INTERMITTENTLY STABBING, RATES AN 8 OR MORE WHEN THIS HAPPENS. HAS HYDROCODONE AND A MUSCLE RELAXANT PRESCRIBED BY HIS PHYSICIAN FOR THIS IN THE PAST AND IS TAKING THOSE NOW TO SEE IF THIS FLARE WILL SUBSIDE. PT ALSO HAVING MILD COLD SYMPTOMS AND LIVES WITH HIS AND DAUGHTER WHO ARE BOTH COVID POSITIVE. PT IS STILL LOOKING FOR A HOME TESTING KIT TO SEE IF HE HAS COVID. MEANWHILE, HE IS TAKING PRECAUTIONS AND IS WEARING AN N-95 MASK WHILE OUT OF HIS HOUSE. PT DENIES N/V/DIARRHEA, FEVER/CHILLS. RIGHT HAND APPEARS LESS SWOLLEN, MOBILITIY IS IMPROVING, NO REDNESS NOTED. TOLERATED TODAY'S INFUSION WITHOUT INCIDENT. DISMISSED IN STABLE CONDITION. WILL RETURN AGAIN TOMORROW.
== END ==
LOC: OPONC 13:37
PROVIDERS: ATTEND Specialist
DX: A31.8 Other mycobacterial infections (principal)
CPT/HCPCS: 95000

== ENCOUNTER → 2021-07-19 | Outpatient (CLI) | payer OTHER, MEDICARE ==
[2021-07-19 10:00] VITALS: BP 129/81
--- NOTE | 2021-07-19 11:24 | NUR ---
PT HERE FOR DAILY TOBRAMYCIN INFUSION. PT HAS NOT BEEN ABLE TO OBTAIN A COVID TEST YET. CONTINUING TO USE FULL PPE WHEN IN ROOM. REPORTS VERY MILD COLD-LIKE SYMPTOMS. PICC LINE INTACT AND VSS. BMP DRAWN PER ORDER. WILL FAX TO DR. GALDAMEZ WHEN RESULTED. PT TOLERATED INFUSION WITH NO INCIDENCE. LEFT UNIT IN STABLE CONDITION. SCHEDULED TO RETURN TOMORROW.
[2021-07-19 12:18] LABS: CALCIUM 8.3 mg/dL (8.5-10.1); CREATININE 1.2 mg/dL (0.7-1.3); POTASSIUM 3.7 mmol/L (3.5-5.1)
== END ==
LOC: OPONC 11:12
PROVIDERS: ATTEND Specialist
DX: M86.8X4 Other osteomyelitis, hand (principal)
CPT/HCPCS: 95000

== ENCOUNTER → 2021-07-20 | Outpatient (CLI) | payer OTHER, MEDICARE ==
[2021-07-20 10:05] VITALS: BP 147/92
--- NOTE | 2021-07-20 11:10 | NUR ---
PT HERE FOR DAILY TOBRAMYCIN INFUSION. PT TESTED POSITIVE FOR COVID WITH AN AT HOME TEST YESTERDAY 07/19. WITH START OF SYMPTOMS BEING 07/17, WE WILL CONTINUE COVID PROTOCOL WHEN TREATING PT UNTIL 07/28. PT STATES HE HAS VERY MINOR SYMPTOMS, NO FEVER, AND NO DIFFICULTY BREATHING. VSS. PICC LINE INTACT. PT TOLERATED INFUSION WITH NO COMPLICATIONS. SCHEDULED TO RETURN TOMORROW. WILL BE TREATED IN INFUSION CLINIC OVER THE WEEKEND. LEFT UNIT IN STABLE CONDITION.
== END ==
LOC: OPONC
PROVIDERS: ATTEND Specialist
DX: A31.8 Other mycobacterial infections (principal)
CPT/HCPCS: 95000

== ENCOUNTER → 2021-07-21 | Outpatient (CLI) | payer OTHER, MEDICARE ==
[2021-07-21 08:15] VITALS: BP 152/91
--- NOTE | 2021-07-21 09:34 | NUR ---
PT HERE FOR DAILY TOBRAMYCIN INFUSION. NO NEW SYMPTOMS TO REPORT. STATES HIS COVID SYMPTOMS ARE HARDLY NOTICEABLE AND IMPROVING. CONTINUING COVID PROTOCOL. PICC LINE INTACT, FLUSHES EASILY, BRISK BLOOD RETURN. TOLERATED INFUSION WITH NO COMPLICATIONS. LEFT UNIT IN STABLE CONDITION. TO RETURN TOMORROW.
== END ==
LOC: OPONC 11:21
PROVIDERS: ATTEND Specialist
DX: M86.8X4 Other osteomyelitis, hand (principal)
CPT/HCPCS: 95000

== ENCOUNTER → 2021-07-22 | Outpatient (CLI) | payer OTHER, MEDICARE ==
[2021-07-22 08:30] VITALS: BP 148/89
--- NOTE | 2021-07-22 09:38 | NUR ---
PT HERE FOR DAILY TOBRAMYCIN INFUSION. REPORTS AN INCREASE IN FATIGUE SINCE HAVING COVID. NO PAIN, DIFFICULTY BREATHING, OR NAUSEA/VOMITING. PT TOLERATED INFUSION WITH NO COMPLICATIONS. LEFT UNIT IN STABLE CONDITION. SCHEDULED TO RETURN TOMORROW.
== END ==
LOC: OPONC 11:50
PROVIDERS: ATTEND Specialist
DX: A31.8 Other mycobacterial infections (principal)
CPT/HCPCS: 95000

== ENCOUNTER → 2021-07-23 | Outpatient (CLI) | payer OTHER, MEDICARE ==
[2021-07-23 10:22] LABS: BASOPHILS 0.2 % (0.0-2.0); EOSINOPHILS 1.3 % (0.0-3.0); HEMATOCRIT 44.5 % (42.0-52.0); HEMOGLOBIN 15.3 gm/dL (14.0-18.0); LYMPHOCYTES 22.3 % (24.0-44.0); MCH 31.9 pg (26.0-34.0); MCHC 34.4 g/dL (28.0-37.0); MCV 92.6 fL (80.0-100.0); MONOCYTES 11.6 % (1.0-8.0); PLATELET COUNT 182 thou/uL (150-400); POLYS 64.6 % (36.0-66.0); RBC 4.81 mil/uL (4.50-6.00); WBC 6.2 thou/uL (4.0-11.0)
[2021-07-23 10:30] VITALS: BP 157/91
[2021-07-23 10:52] LABS: CALCIUM 8.7 mg/dL (8.5-10.1); CREATININE 1.1 mg/dL (0.7-1.3); POTASSIUM 3.8 mmol/L (3.5-5.1); TOTAL BILIRUBIN 0.5 mg/dL (0.2-1.0); TOTAL PROTEIN 7.4 g/dL (6.4-8.2)
--- NOTE | 2021-07-23 12:10 | NUR ---
PT HERE FOR DAILY TOBRAMYCIN INFUSION. REPORTS MILD NAUSEA TODAY R/T COVID. NO VOMITING OR DIARRHEA. STATES HE HAS NOTICED INCREASED MOBILITY IN RIGHT HAND AND DECREASE IN SWELLING. CBC WITH DIFF, CMP, AND TOBRAMYCIN TROUGH DRAWN. WILL FAX TO DR GALDAMEZ WHEN RESULTED. PT TOLERATED INFUSION WITH NO INCIDENCE. PICC LINE DRESSING CHANGED PER PROTOCOL WITH NO COMPLICATIONS. LINE FLUSHES AND MAINTAINS BRISK BLOOD RETURN. LEFT UNIT IN STABLE CONDITION. WILL RETURN TOMORROW.
== END ==
LOC: OPONC 12:00
PROVIDERS: ATTEND Specialist
DX: M86.8X4 Other osteomyelitis, hand (principal)
CPT/HCPCS: 95000

== ENCOUNTER → 2021-07-24 | Outpatient (CLI) | payer OTHER, MEDICARE ==
[2021-07-24 13:28] VITALS: BP 104/89
--- NOTE | 2021-07-24 13:49 | NUR ---
HERE FOR DAILY ANTIBIOTIC. DENIES PAIN. COMPLAINS OF FATIGUE AND SLIGHT COUGH. NO OTHER COMPLAINTS. TOLERATING TOBRAMYCIN WITHOUT ADVERSE REACTIONS. DC AMBULATORY AFTER INFUSION IN STABLE CONDITION. TO RETURN TOMORROW FOR NEXT TREATMENT.
== END ==
LOC: OPONC 15:00
PROVIDERS: ATTEND Specialist
DX: A31.8 Other mycobacterial infections (principal)
CPT/HCPCS: 95000

== ENCOUNTER → 2021-07-25 | Outpatient (CLI) | payer OTHER, MEDICARE ==
[2021-07-25 10:20] VITALS: BP 134/78
--- NOTE | 2021-07-25 11:32 | NUR ---
ARRIVED AMBULATORY. NO NEW COMPLAINTS. TOBRAMYCIN INFUSED WITHOUT DIFFICULTY. STATES HE FEELS LIKE HIS HAND IS SLIGHTLY BETTER. DC AMBULATORY IN STABLE CONDITION. TO HAVE TELMED APPOINTMENT WITH DR. GALDAMEZ LATER TODAY.
== END ==
LOC: OPONC 12:00
PROVIDERS: ATTEND Specialist
DX: M86.8X4 Other osteomyelitis, hand (principal)
CPT/HCPCS: 95000

== ENCOUNTER → 2021-07-26 | Outpatient (CLI) | payer OTHER, MEDICARE ==
[2021-07-26 10:05] VITALS: BP 158/92
--- NOTE | 2021-07-26 11:10 | NUR ---
HERE FOR DAILY IV TOBRAMYCIN INFUSION. STATES NOT FEELING WELL TODAY--HAD A HEADACHE WHEN HE WOKE UP WHICH IS NOW GONE, FEELS IT IS R/T SINUS CONGESTION ALTHO NO RUNNY NOSE, NO COUGH. PT IS ON ABOUT DAY #11 OF ONSET OF COVID SYMPTOMS, CONFIRMED BY A HOME TEST LAST WEEK ON FRI. STATES WORSE PART IS THE FATIGUE. ALSO HAS SLIGHT NAUSEA. HAD A TELEPHONE VISIT WITH DR. GALDAMEZ YESTERDAY WHO SENT ORDERS TO CONTINUE CURRENT PLAN. TOLERATED INFUSION TODAY WITHOUT INCIDENT. HAND APPEARS TO CONTINUE TO HEAL, MINIMAL SWELLING IN HIS FINGER, ROM IMPROVED. DISMISSED IN STABLE CONDITION. SCHEDULED TO RETURN AGAIN IN THE MORNING.
== END ==
LOC: OPONC 11:02
PROVIDERS: ATTEND Specialist
DX: M86.8X4 Other osteomyelitis, hand (principal)
CPT/HCPCS: 95000

== ENCOUNTER → 2021-07-27 | Outpatient (CLI) | payer OTHER, MEDICARE ==
[~2021-07-27] MED LIST changes: +LISINOPRIL-HCT1 EAC1 PO; -LISINOPRIL-HCT1 EACH PO; +PROBIOTIC1 EAC7 PO
[2021-07-27 10:10] VITALS: BP 145/88
--- NOTE | 2021-07-27 11:51 | NUR ---
HERE FOR DAILY IV TOBRAMYCIN INFUSION. YESTERDAY HAD C/O HEADACHE, SLIGHT NAUSEA. TODAY STATES HE FEELS TOTALLY WELL, NO CONCERNS AT ALL. RECOVERING WELL FROM MILD COVID CASE. INFREQUENT DRY COUGH. NO CONCERNS NOTED WITH RIGHT HAND. DENIES N/V/DIARRHEA, PAIN. TOLERATED TODAY'S INFUSION WITHOUT INCIDENT. DIMISSED IN STABLE CONDITION. WILL RETURN AGAIN IN THE MORNING.
== END ==
LOC: OPONC 08:45
PROVIDERS: ATTEND Specialist
DX: M86.8X4 Other osteomyelitis, hand (principal)
CPT/HCPCS: 95000

== ENCOUNTER → 2021-07-28 | Outpatient (CLI) | payer OTHER, MEDICARE ==
[2021-07-28 09:16] VITALS: BP 138/72
--- NOTE | 2021-07-28 09:21 | NUR ---
ARRIVED AMBULATORY FOR DAILY TOBRAMYCIN. VOICES NO NEW COMPLAINTS. STATES HE IS FEELING WELL. LESS SWELLING OF RIGHT HAND. CONTINUES TO DO DAILY EXERCISES TO RIGHT HAND. DENIES SANTIAGO, NAUSEA OR DIARRHEA. INFUSION COMPLETED WITHOUT INCIDENT AND PATIENT DISCHARGE AMBULATORY IN STABLE CONDITION.
== END ==
LOC: OPONC 12:00
PROVIDERS: ATTEND Specialist
DX: A31.8 Other mycobacterial infections (principal)
CPT/HCPCS: 95000

== ENCOUNTER → 2021-07-29 | Outpatient (CLI) | payer OTHER, MEDICARE ==
[2021-07-29 08:05] VITALS: BP 145/70
--- NOTE | 2021-07-29 09:26 | NUR ---
ARRIVED AMBULATORY FOR TOBRAMYCIN. VOICES NO NEW COMPLAINTS. PICC LINE INTACT WITH GOOD BLOOD RETURN. DENIES PAIN, NAUSEA, DIARRHEA, CHILLS OR FEVER. TOLERATED INFUSION WITHOUT ADVERSE REACTION. STATES HE IS FEELING GOOD. CONTINUES TO DO HAND EXERCISES. WILL RETURN IN AM FOR NEXT INFUSION.
== END ==
LOC: OPONC 12:00
PROVIDERS: ATTEND Specialist
DX: A31.8 Other mycobacterial infections (principal)
CPT/HCPCS: 95000

== ENCOUNTER → 2021-07-30 | Outpatient (CLI) | payer OTHER, MEDICARE ==
[2021-07-30 10:10] VITALS: BP 136/78
[2021-07-30 10:58] LABS: ABSOLUTE NEUTROPHILS 4.4 thou/uL (1.4-8.2); BASOPHILS 0.6 % (0.0-2.0); EOSINOPHILS 0.9 % (0.0-3.0); HEMATOCRIT 41.2 % (42.0-52.0); LYMPHOCYTES 21.6 % (24.0-44.0); MCH 31.5 pg (26.0-34.0); MCHC 33.9 g/dL (28.0-37.0); MCV 92.8 fL (80.0-100.0); MONOCYTES 10.7 % (1.0-8.0); PLATELET COUNT 225 thou/uL (150-400); POLYS 66.2 % (36.0-66.0); RBC 4.44 mil/uL (4.50-6.00); RDW 12.7 % (10.5-14.5); WBC 6.7 thou/uL (4.0-11.0)
[2021-07-30 11:13] LABS: ALBUMIN 3.8 g/dL (3.4-5.0); ANION GAP 9 mmol/L (7-16); BUN 17 mg/dL (7-18); CALCIUM 8.6 mg/dL (8.5-10.1); CHLORIDE 100 mmol/L (98-107); CO2 30 mmol/L (21-32); CREATININE 1.2 mg/dL (0.7-1.3); GLUCOSE 137 mg/dL (74-106); POTASSIUM 3.2 mmol/L (3.5-5.1); SGOT 30 U/L (15-37); SGPT 45 U/L (30-65); SODIUM 139 mmol/L (136-145); TOTAL BILIRUBIN 0.6 mg/dL (0.2-1.0); TOTAL PROTEIN 6.7 g/dL (6.4-8.2)
--- NOTE | 2021-07-30 11:15 | NUR ---
HERE FOR DAILY IV TOBRAMYCIN INFUSION. REPORTS DOING WELL, FEELING WELL. NO CONCERNS NOTED. MOVING RIGHT FINGERS WELL, MINIMAL EDEMA, NO PAIN. DENIES N/V/DIARRHEA, FEVER/CHILLS. NO FURTHER C/O SINUS ISSUES OR COUGH. OUT OF COVID QUARANTINE. LABS DRAWN TODAY. TOLERATED INFUSION WITHOUT INCIDENT. DISMISSED IN STABLE CONDITION. WILL RETURN AGAIN TOMORROW.
--- NOTE | 2021-07-30 15:00 | NUR ---
LABS SHOWN TO DR. GALDAMEZ AND FAXED OVER TO PT'S CARDIOLOGY OFFICE, DR. LEON. DR. GALDAMEZ WOULD LIKE FOR DR. LEON TO MANAGE LOW POTASSIUM, MESSAGE LEFT WITH NURSE REQUESTING THIS AND PT NOTIFIED. PT IS SEEING DR. LEON TOMORROW IN HIS OFFICE.
== END ==
LOC: OPONC 13:59
PROVIDERS: ATTEND Specialist
DX: M86.8X4 Other osteomyelitis, hand (principal)
CPT/HCPCS: 95000

== ENCOUNTER → 2021-07-31 | Outpatient (CLI) | payer OTHER, MEDICARE ==
[2021-07-31 10:05] VITALS: BP 150/73
--- NOTE | 2021-07-31 11:05 | NUR ---
HERE FOR DAILY IV TOBRAMYCIN. REPORTS FEELING GREAT TODAY. NO CONCERNS NOTED. TOLERATING INFUSIONS WITHOUT INCIDENT. GOING TO HIS [facility] TODAY, LABS FAXED THERE YESTERDY (DR. LENO) NOTING LOW K AT 3.2. PT TO HAVE CARDIOLOGY MANAGE THIS. DISMISSED IN STABLE CONDITION. SCHEDULED TO RETURN AGAIN TOMORROW MORNING.
== END ==
LOC: OPONC 12:00
PROVIDERS: ATTEND Specialist
DX: M86.8X4 Other osteomyelitis, hand (principal)
CPT/HCPCS: 95000

== ENCOUNTER → 2021-08-01 | Outpatient (CLI) | payer OTHER, MEDICARE ==
[2021-08-01 10:06] VITALS: BP 140/81
--- NOTE | 2021-08-01 10:25 | NUR ---
PATIENT ARRIVED AMBULATORY WITH NO NEW COMPLAINTS. STATES HE IS FEELING WELL. DENIES HEADACHE, CHILLS, NAUSEA, OR DIARRHEA. PICC LINE DRESSING INTACT. GOOD BLOOD RETURN. DENIES ANY CARDIAC SYMPTOMS. PATIENT STATES HE SAW DR. LEON (CARDIOLOGY) YESTERDAY. HE WILL REMAIN ON XARELTO FOR TWO MORE WEEKS, THEN GO OFF THE MEDICATION. HE WILL MONITOR HIMSELF 2X DAILY WITH A HEART MONITOR TO SEE IF HE IS IN AFIB. IF HE IS HE STARTS BACK ON XARELTO AND SEES DR. LEON IMMEDIATELY IN HIS OFFICE. THIS IS THE PLAN THAT PT AND ROUND UP RING HAND CAME UP WITH PATIENT DID NOT WANT TO CONTINUE ON XARELTO. PATIENT SEES DR. GALDAMEZ THIS AFTERNOON IN OFFICE. TOLERATED INFUSION WITHOUT ADVERSE REATION. DC TO HOME IN STABLE CONDITION.
== END ==
LOC: OPONC 13:32
PROVIDERS: ATTEND Specialist
DX: M86.8X4 Other osteomyelitis, hand (principal)
CPT/HCPCS: 95000

== ENCOUNTER → 2021-08-02 | Outpatient (CLI) | payer OTHER, MEDICARE ==
[2021-08-02 10:00] VITALS: BP 151/89
[2021-08-02 10:58] LABS: CALCIUM 8.7 mg/dL (8.5-10.1); CREATININE 1.2 mg/dL (0.7-1.3); POTASSIUM 3.5 mmol/L (3.5-5.1)
--- NOTE | 2021-08-02 12:05 | NUR ---
PT HERE FOR DAILY TOBRAMYCIN INFUSION. NO NEW SYMPTOMS TO REPORT. BMP DRAWN PER ORDER. K LEVEL UP TO 3.5. RESULTS FAXED TO DR GALDAMEZ AND DR LEON. PICC LINE INTACT, BRISK BLOOD RETURN. PT TOLERATED INFUSION WITH NO INCIDENCE. LEFT UNIT IN STABLE CONDITION. WILL RETURN TOMORROW.
== END ==
LOC: OPONC 10:46
PROVIDERS: ATTEND Specialist
DX: A31.8 Other mycobacterial infections (principal); M86.8X4 Other osteomyelitis, hand
CPT/HCPCS: 95000

== ENCOUNTER → 2021-08-03 | Outpatient (CLI) | payer OTHER, MEDICARE ==
[2021-08-03 11:00] VITALS: BP 176/101
--- NOTE | 2021-08-03 12:18 | NUR ---
PT HERE FOR DAILY TOBRAMYCIN INFUSION. NO COMPLAINTS OR SYMPTOMS TO REPORT. BP ELEVATED TODAY 176/101. TOLD PT WE WOULD KEEP AN EYE ON IT AND TOUCH BASE WITH INFRASTRUCTURE ENGINEER IF NEEDED. PICC LINE REMAINS INTACT, FLUSHES WELL, BRISK BLOOD RETURN. PT TOLERATED INFUSION WITH NO COMPLICATIONS. LEFT UNIT IN STABLE CONDITION. WILL BE TREATED IN INFUSION CLINIC OVER THE WEEKEND.
== END ==
LOC: OPONC 13:37
PROVIDERS: ATTEND Specialist
DX: A31.8 Other mycobacterial infections (principal); M86.8X4 Other osteomyelitis, hand
CPT/HCPCS: 95000

== ENCOUNTER → 2021-08-04 | Outpatient (CLI) | payer OTHER, MEDICARE ==
[2021-08-04 08:00] VITALS: BP 169/90
--- NOTE | 2021-08-04 09:24 | NUR ---
PT HERE FOR DAILY TOBRAMYCIN INFUSION. NO COMPLAINTS OR SYMPTOMS TO REPORT. BP REMAINS HIGH. WILL CONTINUE TO MONITOR. PICC LINE INTACT. FLUSHES AND ASPIRATES WELL. PT TOLERATED INFUSION WITH NO COMPLICATIONS. LEFT UNIT IN STABLE CONDITION. TO RETURN TOMORROW.
== END ==
LOC: OPONC 09:08
PROVIDERS: ATTEND Specialist
DX: A31.8 Other mycobacterial infections (principal)
CPT/HCPCS: 95000

== ENCOUNTER → 2021-08-05 | Outpatient (CLI) | payer OTHER, MEDICARE ==
[2021-08-05 08:00] VITALS: BP 162/89
--- NOTE | 2021-08-05 09:23 | NUR ---
PT HERE FOR DAILY TOBRAMYCIN INFUSION. NO NEW SYMPTOMS TO REPORT. STATES HE HAS NOT NOTICED MUCH IMPROVEMENT IN HIS HAND MOBILITY THIS WEEK. SEES RUDOLPH ON FRIDAY AND WILL DISCUSS THEN. PICC LINE INTACT. TOLERATED INFUSION WITH NO COMPLICATIONS. LEFT UNIT IN STABLE CONDITION. WILL RETURN TOMORROW.
== END ==
LOC: OPONC 09:11
PROVIDERS: ATTEND Specialist
DX: A31.8 Other mycobacterial infections (principal)
CPT/HCPCS: 95000

== ENCOUNTER → 2021-08-06 | Outpatient (CLI) | payer OTHER, MEDICARE ==
[2021-08-06 14:00] LABS: ABSOLUTE NEUTROPHILS 4.9 thou/uL (1.4-8.2); BASOPHILS 0.6 % (0.0-2.0); EOSINOPHILS 1.2 % (0.0-3.0); HEMATOCRIT 37.8 % (42.0-52.0); LYMPHOCYTES 21.9 % (24.0-44.0); MCH 31.4 pg (26.0-34.0); MCHC 34.5 g/dL (28.0-37.0); MCV 91.2 fL (80.0-100.0); MONOCYTES 10.3 % (1.0-8.0); PLATELET COUNT 203 thou/uL (150-400); RBC 4.15 mil/uL (4.50-6.00); RDW 12.5 % (10.5-14.5); WBC 7.4 thou/uL (4.0-11.0)
[2021-08-06 14:03] VITALS: BP 156/85
[2021-08-06 14:38] LABS: ALBUMIN 3.9 g/dL (3.4-5.0); ANION GAP 8 mmol/L (7-16); BUN 22 mg/dL (7-18); CALCIUM 8.4 mg/dL (8.5-10.1); CHLORIDE 100 mmol/L (98-107); CO2 28 mmol/L (21-32); CREATININE 1.3 mg/dL (0.7-1.3); GLUCOSE 113 mg/dL (74-106); POTASSIUM 3.1 mmol/L (3.5-5.1); SGOT 42 U/L (15-37); SGPT 53 U/L (30-65); SODIUM 136 mmol/L (136-145); TOTAL BILIRUBIN 0.7 mg/dL (0.2-1.0); TOTAL PROTEIN 6.7 g/dL (6.4-8.2)
--- NOTE | 2021-08-06 15:01 | NUR ---
ARRIVED AMBULATORY FOR TOBRAMYCIN INFUSION. VSS. DENIES HEART SYMPTOMS OR SIDE EFFECTS FROM ANTIBIOTIC USE. NO PAIN IN FINGER BUT STATES IT IS STIFF. HE SAID HE DOES NOT SEE ANY REAL CHANGE IN IT FROM LAST WEEK. TOLERATED INFUSION WITHOUT INCIDENT. PATIENT DISCHARGED AMBULATORY IN STABLE CONDITION.
== END ==
LOC: OPONC 09:13
PROVIDERS: ATTEND Specialist
DX: A31.8 Other mycobacterial infections (principal)
CPT/HCPCS: 95000

== ENCOUNTER → 2021-08-07 | Outpatient (CLI) | payer OTHER, MEDICARE ==
[2021-08-07 10:05] VITALS: BP 132/69
--- NOTE | 2021-08-07 11:10 | NUR ---
HERE FOR DAILY TOBRAMYCIN INFUSION. REPORTS DOING WELL, FEELING WELL. NO CONCERNS NOTED OTHER THAN ONGOING STIFFNESS, SLIGHT EDEMA RIGHT HAND/RING FINGER. DENIES N/V/DIARRHEA. NOTED LOW K FROM YESTERDAY. PT STATES HE HAD TROUBLE GETTING THE ORAL K SCRIPT FILLED SO JUST STARTED ON IT A COUPLE DAYS AGO AND WILL CONTINUE AND ADDRESS THIS WHEN HE SEES DR. GALDAMEZ ON . PT ALSO ENCOURAGED TO INCREASE FLUID INTAKE BUN/CR UP SLIGHTLY. PT VERBALIZES UNDERSTANDING. TOLERATED TODAY'S INFUSION WITHOUT INCIDENT. DISMISSED IN STABLE CONDITION. SCHEDULED TO RETURN AGAIN TOMORROW.
== END ==
LOC: OPONC 14:05
PROVIDERS: ATTEND Specialist
DX: A31.8 Other mycobacterial infections (principal)
CPT/HCPCS: 95000

== ENCOUNTER → 2021-08-08 | Outpatient (CLI) | payer OTHER, MEDICARE ==
[2021-08-08 10:03] VITALS: BP 143/91
--- NOTE | 2021-08-08 11:07 | NUR ---
HERE FOR DAILY IV TOBRAMYCIN INFUSION. REPORTS DOING WELL. NO CONCERNS NOTED. TOLERATED INFUSION WITHOUT INCIDENT. DISMISSED IN STABLE CONDITION. SCHEDULED TO RETURN AGAIN IN THE MORNING.
== END ==
LOC: OPONC 09:12
PROVIDERS: ATTEND Specialist
DX: M86.8X4 Other osteomyelitis, hand (principal)
CPT/HCPCS: 95000

== ENCOUNTER → 2021-08-09 | Outpatient (CLI) | payer OTHER, MEDICARE ==
[2021-08-09 10:41] LABS: CALCIUM 8.9 mg/dL (8.5-10.1); CREATININE 1.4 mg/dL (0.7-1.3); POTASSIUM 3.8 mmol/L (3.5-5.1)
[2021-08-09 11:10] VITALS: BP 129/80
--- NOTE | 2021-08-09 11:10 | NUR ---
HERE FOR DAILY TOBRAMYCIN INFUSION. REPORTS DOING WELL, FEELING WELL. NO CONCERNS NOTED. SEEING DR. GALDAMEZ TODAY. LABS DRAWN. TOLERATED INFUSION WITHOUT INCIDENT. DISMISSED IN STABLE CONDITION. SCHEDULED TO RETURN AGAIN IN THE MORNING.
== END ==
LOC: OPONC 15:07
PROVIDERS: ATTEND Specialist
DX: M86.8X4 Other osteomyelitis, hand (principal)
CPT/HCPCS: 95000

== ENCOUNTER → 2021-08-10 | Outpatient (CLI) | payer OTHER, MEDICARE ==
[2021-08-10 10:00] VITALS: BP 139/84
--- NOTE | 2021-08-10 11:42 | NUR ---
PT HERE FOR DAILY TOBRAMYCIN INFUSION. NO NEW SYMPTOMS TO REPORT. STATES DR GALDAMEZ TOLD HIM HE HAS ONE MORE WEEK ON DAILY ANTIBIOTICS. PICC LINE INTACT, FLUSHES AND ASPIRATES WELL. TOLERATED INFUSION WITH NO INCIDENCE. LEFT UNIT IN STABLE CONDITION. SCHEDULED TO RETURN TOMORROW. WILL BE TREATED IN INFUSION CLINIC OVER THE WEEKEND. UNDERSTANDS PROCESS.
== END ==
LOC: OPONC 08-09 10:33
PROVIDERS: ATTEND Specialist
DX: A31.8 Other mycobacterial infections (principal)
CPT/HCPCS: 95000

== ENCOUNTER → 2021-08-11 | Outpatient (CLI) | payer OTHER, MEDICARE ==
[2021-08-11 09:10] VITALS: BP 141/77
--- NOTE | 2021-08-11 09:25 | NUR ---
HERE FOR DAILY TOBRAMYCIN INFUSION. REPORTS DOING WELL. ANTICIPATES JUST ONE MORE WEEK OF THERAPY. TOLERATED INFUSION WITHOUT INCIDENT. DISMISSED IN STABLE CONDITION. WILL RETURN AGAIN IN THE MORNING.
== END ==
LOC: OPONC 10:36
PROVIDERS: ATTEND Specialist
DX: A31.8 Other mycobacterial infections (principal)
CPT/HCPCS: 95000

== ENCOUNTER → 2021-08-12 | Outpatient (CLI) | payer OTHER, MEDICARE ==
[2021-08-12 08:00] VITALS: BP 136/73
--- NOTE | 2021-08-12 08:27 | NUR ---
PT HERE FOR DAILY IV TOBRAMYCIN INFUSION. CONTINUES TO REPORT DOING WELL AND HAS NO CONCERNS. MED INFUSING TODAY WITHOUT INCIDENT. PT IS SCHEDULED TO RETURN TOMORROW.
== END ==
LOC: OPONC 12:00
PROVIDERS: ATTEND Specialist
DX: A31.8 Other mycobacterial infections (principal)
CPT/HCPCS: 95000

== ENCOUNTER → 2021-08-13 | Outpatient (CLI) | payer OTHER, MEDICARE ==
[2021-08-13 10:20] VITALS: BP 142/81
[2021-08-13 11:12] LABS: ABSOLUTE NEUTROPHILS 4.4 thou/uL (1.4-8.2); BASOPHILS 0.4 % (0.0-2.0); EOSINOPHILS 1.2 % (0.0-3.0); HEMATOCRIT 38.1 % (42.0-52.0); HEMOGLOBIN 13.2 gm/dL (14.0-18.0); LYMPHOCYTES 20.5 % (24.0-44.0); MCH 31.9 pg (26.0-34.0); MCHC 34.7 g/dL (28.0-37.0); MCV 91.8 fL (80.0-100.0); MONOCYTES 11.6 % (1.0-8.0); PLATELET COUNT 168 thou/uL (150-400); POLYS 66.3 % (36.0-66.0); RBC 4.15 mil/uL (4.50-6.00); RDW 12.6 % (10.5-14.5); WBC 6.7 thou/uL (4.0-11.0)
[2021-08-13 11:24] LABS: ALBUMIN 3.9 g/dL (3.4-5.0); ANION GAP 10 mmol/L (7-16); BUN 30 mg/dL (7-18); CHLORIDE 101 mmol/L (98-107); CO2 27 mmol/L (21-32); CREATININE 1.5 mg/dL (0.7-1.3); GLUCOSE 96 mg/dL (74-106); POTASSIUM 3.8 mmol/L (3.5-5.1); SGOT 37 U/L (15-37); SGPT 58 U/L (30-65); SODIUM 138 mmol/L (136-145); TOTAL BILIRUBIN 0.4 mg/dL (0.2-1.0); TOTAL PROTEIN 6.8 g/dL (6.4-8.2)
--- NOTE | 2021-08-13 11:25 | NUR ---
HERE FOR DAILY IV TOBRAMYCIN. LOOKS WELL, REPORTS DOING WELL. NO CONCERNS NOTED. LABS DRAWN TODAY, PICC DRESSING CHANGE DONE. TOLERATED INFUSION WITHOUT INCIDENT. DISMISSED IN STABLE CONDITION. SCHEDULED TO RETURN AGAIN IN THE MORNING.
== END ==
LOC: OPONC 13:19
PROVIDERS: ATTEND Specialist
DX: A31.8 Other mycobacterial infections (principal)
CPT/HCPCS: 95000

== ENCOUNTER → 2021-08-14 | Outpatient (CLI) | payer OTHER, MEDICARE ==
[2021-08-14 10:00] VITALS: BP 152/83
--- NOTE | 2021-08-14 11:10 | NUR ---
PT HERE FOR DAILY TOBRAMYCIN INFUSION. NO NEW SYMPTOMS TO REPORT. LABS FROM YESTERDAY FAXED TO DR. GALDAMEZ THIS MORNING. SEES RUDOLPH IN OFFICE ON FRIDAY, LIKELY TO BE DONE WITH TX AT THAT TIME. PICC LINE INTACT, FLUSHES AND ASPIRATES WELL. PT TOLERATED INFUSION WITH NO COMPLICATIONS. SCHEDULED TO RETURN TOMORROW.
== END ==
LOC: OPONC 11:18
PROVIDERS: ATTEND Specialist
DX: A31.8 Other mycobacterial infections (principal)
CPT/HCPCS: 95000